=== PATIENT | male | born 1955 | race American Indian/Alaskan Native ===

== ENCOUNTER 2019-02-23 11:22 | Day surgery (SDC) | payer BC ==
[~2019-02-23 11:22] MED LIST: SODIUM CHLORIDE 0.9% 1000 ML 1,000 ML IV SCH
[2019-02-23] MEDS ORDERED: PROPOFOL 200 MG/20 ML VIAL IV ONE (12:13)
--- NOTE | 2019-02-23 12:13 | Anesthesia Consultation ---
Anesthesia Consult and Med Hx Date of service: 02/23/19 - Airway Anesthetic Teeth Evaluation: Poor ROM Head & Neck: Adequate Mental/Hyoid Distance: Inadequate Mallampati Class: Class III Intubation Access Assessment: Possibly Difficult - Pulmonary Exam CTA: Yes - Cardiac Exam Cardiac Exam: No Murmur (irregular rhythm) - Pre-Operative Health Status ASA Pre-Surgery Classification: ASA3 Proposed Anesthetic Plan: MAC - Pulmonary Hx Respiratory Symptoms: No Hx Sleep Apnea: Yes (compliant with CPAP) - Cardiovascular System Hx Hypertension: Yes (took antihypertensives today) Hx Heart Attack/AMI: No Hx Percutaneous Transluminal Coronary Angioplasty (PTCA): No Hx Cardia Arrhythmia: Yes (recent diagnosis. Otherwise normal cardiac work up, per patient.) Hx Pacemaker: No Hx Internal Defibrillator: No - Central Nervous System CVA: No - Gastrointestinal Hx Gastroesophageal Reflux Disease: No - Endocrine Hx Renal Disease: No Hx Liver Disease: No Hx Non-Insulin Dependent Diabetes: Yes Hx Hypothyroidism: Yes - Other Systems Hx Obesity: Yes (BMI 45)
--- NOTE | 2019-02-23 12:14 | Anesthesia Day of Surgery ---
Anesthesia Day of Surgery - Day of Surgery Patient Examined: Yes Patient H&P Reviewed: Yes Patient is NPO: Yes Beta Blockers: Yes
[2019-02-23] MEDS ORDERED: EPINEPHrine 1:10,000 1 MG/10 ML SYRINGE ONE (12:42)
[2019-02-23] MEDS ORDERED: EPINEPHrine 1:10,000 1 MG/10 ML SYRINGE IV ONE (13:00)
--- NOTE | 2019-02-23 13:10 | Short Stay Summary ---
Short Stay Documentation Date of service: 02/23/19 - History H&P: obtained from office Past Medical History: diabetes, hypertension, other (Morbid obesity, obstructive sleep apnea) Past Surgical History: No surgical history Social history: no significant social history, lives with family, no smoking, no alcohol abuse - Allergies and Medications Current Medications: Allergies No Known Allergies Allergy (Verified 02/23/19 11:46) Home Medications Medication Instructions Recorded Confirmed Last Taken Type Amlodipine Besylate 10 mg PO DAILY 02/23/19 02/23/19 02/23/19 History Aspirin 81 mg PO DAILY 02/23/19 02/23/19 02/23/19 History AtorvaSTATin 40 mg PO DAILY 02/23/19 02/23/19 02/23/19 History Furosemide 40 mg PO DAILY 02/23/19 02/23/19 02/23/19 History Levothyroxine 0.088 mg PO DAILY 02/23/19 02/23/19 02/23/19 History Metoprolol Succinate 25 mg PO DAILY 02/23/19 02/23/19 02/23/19 History metFORMIN 500 mg PO DAILY 02/23/19 02/23/19 02/21/19 History Active Medications Sodium Chloride (Nacl 0.9% 1000 Ml) 1,000 mls @ 50 mls/hr IV DIRECT JOSE Last Admin: 02/23/19 12:14 Dose: 50 mls/hr Documented by: - Physical exam General appearance: no acute distress, well-nourished, obese Integumentary: no rash, no growths, no abnormal pigmentation HEENT: Atraumatic, PERRLA, EOMI, Mucous membr. moist/pink Lungs: Clear to auscultation, Normal air movement Breasts: deferred Heart: Regular rate, Normal S1, Normal S2, No murmurs Gastrointestinal: normoactive bowel sounds, no tenderness, no distended, no masses, no guarding, no organomegaly, obese Male Genitourinary: deferred Rectal Exam: normal exam-external/orifice, no mass Extremities: no ischemia, pulses intact, pulses symmetrical, No edema, normal temperature, normal color, Full ROM Neurological: Normal gait, Normal speech, Strength at 5/5 X4 ext, Normal tone, Sensation intact, Cranial nerves 3-12 NL - Brief post op/procedure progress note Date of procedure: 02/23/19 Findings: see dictation Estimated blood loss: none Pathology: list (1. 2 descending colon polyps, 2. large sigmoid polyp on a stalk) - Discharge Diagnoses (1) Colon cancer screening Status: Acute Short Stay Discharge Plan Activity: other (no driving for 24 hours, no NSAIDS for 7 days) Weight Bearing Status: Full Weight Bearing Diet: diabetic Follow up with: DAHIANA UMAÑA MD [Primary Care Provider] - 7 Days
--- NOTE | 2019-02-23 13:14 | Operative Report ---
Operative Report Operative Report: Date of procedure: 02/23/2019 Preprocedure diagnosis: Cancer screening, no prior studies. Average risk. Post procedure diagnosis: Small descending colon polyps, one large sigmoid polyp on a stalk. Procedure: Colonoscopy to the cecum with snare cautery of the 2 descending colon polyps and snare cautery with epinephrine injection of the large sigmoid polyp. Endoscopist: Dr. Queen Anesthesia: Monitored anesthesia care per anesthesia department Estimated blood loss: 0 Medications: Monitored anesthesia care. See separate report by anesthesia for details. After careful discussion of the nature and purpose of the procedure as well as details of the technique risks benefits and alternatives the patient gave consent. Please see recent history and physical from the office. The patient was placed in the left lateral decubitus position and medicated per anesthesia. A rectal exam was performed sphincter tone was normal there were no masses palpable. The Olympus colonoscope was passed transanally and advanced under continuous direct vision without difficulty to the cecum. The colon was well prepared. The cecum was normal. The ascending colon was normal and on forward and retroflexed views. The transverse colon was normal. The descending colon revealed 2 polyps approximately 6-7 mm in size and semi-pedunculated. Both polyps are removed with snare cautery and retrieved by suction. There was a large, 3 cm polyp in the sigmoid colon on a long stalk. The stalk was injected with 2 mL of 1-10,000 epinephrine to pretreat given the increased risk of bleeding in the setting. The polyp was then successfully removed at the stalk level in 1 piece. The stalk was removed by suction on the tip of the scope and withdrawn manually. The polypectomy site was reinspected and there appeared to be no active vessel present in the remaining stalk. The rectum was normal on forward and retroflexed views. The procedure was well-tolerated overall and the patient was observed in recovery. Conclusions: 2 descending colon polyps, large sigmoid polyp on a stalk. Plan: Await pathology. Repeat colonoscopy in one year if there is no malignancy found in the sigmoid polyp. Signed electronically: Adam Queen M.D.
[2019-02-23 13:44] VITALS: BP 123/75
== END 2019-02-23 11:23 | disposition home or self-care (01) ==
LOC: GIO 11:22
PROVIDERS: ATTEND Internal Medicine Gastroenterology
DX: Z12.11 Encounter for screening for malignant neoplasm of colon (principal); D12.4 Benign neoplasm of descending colon; D12.5 Benign neoplasm of sigmoid colon; I42.9 Cardiomyopathy, unspecified; I10 Essential (primary) hypertension; G47.30 Sleep apnea, unspecified; E03.9 Hypothyroidism, unspecified; E11.9 Type 2 diabetes mellitus without complications; E66.01 Morbid (severe) obesity due to excess calories; Z79.899 Other long term (current) drug therapy; Z79.82 Long term (current) use of aspirin; Z79.84 Long term (current) use of oral hypoglycemic drugs; Z98.890 Other specified postprocedural states; Z72.89 Other problems related to lifestyle; Z68.42 Body mass index [BMI] 45.0-49.9, adult
CPT/HCPCS: 45381; 45385; 82962; 88305; J0171; J2704; J7030